=== PATIENT | male | born 1960 | race Caucasian/White ===

== ENCOUNTER 2020-04-28 05:34 | Day surgery (SDC) | payer OTHER ==
[~2020-04-28 05:34] MED LIST: AMBIEN10 MG PO; COZAAR50 MG PO; DEPAKOTE ER500 MG PO; DIVALPROEX SOD500 M1 PO; DULOX PO; DULOXETINE HCL30 MG PO; ETODOLAC PO; HYDROCHLOROTHIA50 MG PO; PANTO PO; ZANTAC300 MG PO
== END 2020-04-28 10:45 | disposition home or self-care (01) ==
LOC: CIR.AMB 05:34
PROVIDERS: ATTEND Orthopaedic Surgery Hand Surgery
DX: M65.231 Calcific tendinitis, right forearm (principal); Z20.822 Contact with and (suspected) exposure to COVID-19